=== PATIENT | female | born 1990 ===

== ENCOUNTER 2016-06-03 16:52 | Inpatient (IN) ==
[2016-06-03] MEDS ORDERED: ONDANSETRON 4 MG/2 ML VIAL IV PRN ×2 (17:33→19:43)
[2016-06-03] MEDS ORDERED: MAGNESIUM SULF DRIP 40 GM/1,000 ML ML IV ONE (17:52)
[2016-06-03] MEDS ORDERED: AMPICILLIN 2,000 MG VIAL ONE (17:57)
[2016-06-03] MEDS ORDERED: SODIUM CHLORIDE 0.9% 100 ML IV ONE (17:58)
[2016-06-03] MEDS ORDERED: LACTATED RINGERS 1,000 ML IV SCH ×2 (18:00→20:00)
[2016-06-03] MEDS ORDERED: BETAMETH SODIUM PHOS/ACETATE 30 MG/5 ML VIAL IM SCH (18:00)
[2016-06-03] MEDS ORDERED: AMPICILLIN INJ 2,000 MG in SODIUM CHLORIDE 0.9% 100 ML IV SCH (18:00)
[2016-06-03] MEDS ORDERED: MAGNESIUM SULF DRIP 40 GM/1,000 ML ML IV SCH (18:00)
[2016-06-03 18:13] LABS: Basophils % 0.2 % (0.0-0.8); Eosinophils # 0.1 10*3/uL (0.0-0.87); Eosinophils % 0.6 % (0.00-10.9); Hematocrit 32.5 VOL% (35.7-47.0); Hemoglobin 10.6 GM/DL (12.0-16.0); Immature Granulocytes % 0.5 %; Immature Granulocytes Absolute 0.05 #; Lymphocytes # 1.7 10*3/uL (1.4-4.0); Lymphocytes % 16.2 % (21.3-54.2); Mean Corpuscular HGB Conc 32.6 GM/DL (32-36); Mean Corpuscular Hemoglobin 30 PG (27-34); Mean Corpuscular Volume 90.8 FL (87-102); Mean Platelet Volume 10.7 FL (9.6-12.0); Monocytes # 0.6 10*3/uL (0.11-0.8); Monocytes % 6.3 % (1.7-12.7); Neutrophils # 7.8 10*3/uL (1.4-7.4); Neutrophils % 76.2 % (38.7-73.9); Platelet Count 201 T/CUMM (130-400); Red Blood Count 3.58 MC/CUMM (3.8-5.5); Red Cell Distribution Width 13.3 % (9.3-17.3); White Blood Count 10.2 T/CUMM (4-12)
--- NOTE | 2016-06-03 18:26 | Ultrasound Report ---
Exam: US OB limited Date: 06/03/2016 5:34 PM Comparison: 02/17/2010 Indication: Possible premature rupture of membranes, position, LENNY Technique:[Limited transabdominal scans were obtained. Color flow scans obtained. Ultrasound images were captured and stored.] Findings: There is a single intrauterine fetus in the transverse lie presentation with the feet in the cervical location. No measurable cervix identified. Anterior placenta is not low lying in position. Maternal ovaries are not identified. No detailed survey scans were obtained. Measurements obtained are as follows: BPD 32 weeks 3 days HC 33 weeks 1 day AC 31 weeks 2 days FL 30 weeks 1 day EFW 3 lbs. 12 oz. +/- 9 ounces GP 97% LENNY 87.3 mm Impression: Single intrauterine fetus in the transverse lie presentation at 31 weeks 4 days +/- 2 weeks 1 day with EDC 08/01/2016. LENNY 87.3 mm. No measurable cervix with feet projecting in the cervical location. Follow-up scans may be helpful for further evaluation as discussed the patient's nurse, at 6:20 PM on 06/03/2016. PROCEDURE INTERPRETED AT [facility] DEPARTMENT OF RADIOLOGY Final Report Signed by: Dr. Joana Tim
[2016-06-03 18:35] LABS: Albumin 2.5 G/DL (3.4-5.0); Bilirubin,Total 0.4 MG/DL (0.2-1.0); Calcium 8.2 MG/DL (8.5-10.1); Osmolality,Calculated 274.5 MOS/KG (273-304); Total Protein 6.3 G/DL (6.4-8.3)
[2016-06-03] MEDS ORDERED: CITRIC ACID/SODIUM CITRATE 30 ML UDCUP PO ONE (18:39)
[2016-06-03] MEDS ORDERED: FAMOTIDINE 20 MG/2 ML VIAL IV ONE (18:39)
[2016-06-03] MEDS ORDERED: ceFAZolin 2,000 MG in PREMIX 1 EACH IV ONE (18:41)
[2016-06-03] MEDS ORDERED: OXYTOCIN/LR 20 UNIT/1,000 ML BAG IV ONE ×4 (18:44→22:35)
[2016-06-03 18:50] LABS: Apearance,Urine CLEAR (Clear); Bilirubin,Urine Negative (Negative); Blood, Urine Negative (Negative); Glucose,Urine (UA) Negative (Negative); Ketones,Urine Negative (Negative); Mucus,Urine Occasional /LPF (Occasional); Nitrite,Urine Negative (Negative); Protein,Urine Negative; RBC,Urine <1 /HPF (0-4); Squamous Epithelial Cell,Urine Occasional /HPF (0-10); Urine Color Yellow (Yellow); Urine Specific Gravity 1.024 (1.001-1.035); Urine Urobilinogen < 2.0 EU/DL (0.2-1.0); WBC,Urine <1 /HPF (0-6)
[2016-06-03] MEDS ORDERED: ONDANSETRON 4 MG/2 ML VIAL ONE (19:31)
[2016-06-03] MEDS ORDERED: TISSUE ADHESIVE 1 EACH APPLICATOR TOP ONE (19:34)
--- NOTE | 2016-06-03 19:35 | OB/GYN History & Physical ---
History of Present Illness History of present illness: Ms. Oconnell is a 25 year old female Pt. 25y/o @ 27+5 wks DAVID 08/28 presents with rupture of membranes since 1pm today. Pt. denies any vaginal bleeding, decreased movement or contractions. Pt. care with Dr. Smith in which I have no access to review. Per pt care uncomplicated. Home Medications Medication Instructions Recorded Confirmed Type No Known Home Medications [No 06/03/16 06/03/16 History Known Home Medications] Allergies Allergy/AdvReac Type Severity Reaction Status Date / Time No Known Allergies Allergy Unverified 08/16/14 20:27 12 point system: reviewed and no additional remarkable complaints except as stated Medical,Surgical,& Family Hx - Medical History Neurology: No history of: Seizures Reproductive: No history of: Ectopic , Complication - Surgical History Reproductive Surgeries: Patient denies;: Section - Social History Smoking Status: Never smoker Frequency of Alcohol Use: None 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 - 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 General appearance: no acute distress - Antepartum / Post Antepartum Exam Cervix -Dilatation: 4 Effacement: 80 Station: -3 Heart Rate: reactive, with moderate variability Reedley: + contractions - Respiratory Respiratory exam: Present: clear to auscultation bilaterally - Cardiovascular Cardiovascular exam: Present: regular rate and rhythm - GI/Abdominal GI/Abdominal exam: Present: normal bowel sounds - Extremities Exam Extremities exam: Present: normal inspection - Neurological Exam Neurological exam: Present: alert, oriented X3 - Psychiatric Psychiatric exam: Present: normal affect, normal mood - Skin Skin exam: Present: normal color Assessment and Plan (1) premature rupture of membranes (PPROM) with onset of labor after 24 hours of rupture in first trimester, antepartum Status: Acute Assessment and plan: 1. admit to labor and delivery 2. ampicillen 2gm ivpg q6hr and erythromycin 250mg q 6hr 3. magnesium for neuroprotection 4. betamethasone for lung maturity 5. ultrasound for presentation and growth Addendum: Ultrasound revealed a footling breech presentation, pt grossly ruptured and 4cm/80/-3 and palpable foot on exam. STAT primary delivery. Pt. explained my findings and recommendation for delivery by ceserean. Risk/benefits/alternatives discussed including risk of bleeding, infection, bowel or bladder injury, hysterectomy, etc. Pt. expressed her understanding. all questions answered. consent signed and witnessed. Pt. seen by NICU team. Current Visit: Yes Results - Labs CBC & BMP: 06/03/16 18:05 06/03/16 18:05 Quality Measures - VTE Contraindication to Pharmacological VTE Prophylaxis: High Risk of Bleeding
--- NOTE | 2016-06-03 19:42 | Operative Note ---
Date of procedure: 06/03/16 Pre-op diagnosis: 25y/o @ 27+5wks with PPROM in labor, breech presenting fetus Post-op diagnosis: same Procedure: classical uterine incision 1/8 weight [id number] time 2017 male footling breech FINDINGS: A living male , breech presentation, weight 2lbs 15oz, scores 1 and 8. DESCRIPTION OF PROCEDURE: The patient was brought to the operating room after her spinal preparation, and Wilkinson had been performed. The abdomen was prepped and draped in the normal sterile fashion and tested for analgesia. When found to be adequate, a low-abdominal Pfannenstiel incision was made with the first knife and carried down to the fascia with the bovie. The fascia was incised in the midline and extended laterally with curved Connors scissors. Tawanda clamps were placed on the fascial edge, anteriorly. The rectus muscles were by sharp dissection. The rectus muscles were divided in the midline by sharp dissection. The parietoperitoneum was grasped with hemostats and carefully entered into bluntly. The bladder blade was inserted. Scapel was used to make a classical incision on the uterus carefully and extended with bandage scissors. A living male was delivered atraumatically from the breech presentation. The baby was suctioned and cried immediately, and was handed to the pediatric team in attendance. The placenta was delivered with gentle uterine massage. The uterus was explored with a wet lap sponge and found to be clear of membranes. The angles of the incision were sutured 0 vicryl in a locked running fashion x 3 layers, using 2.0 chromic on the last serosal layer. Hemostasis was carefully checked and found to be satisfactory. The fallopian tubes and ovaries were inspected and found to be normal bilaterally. Interceed was then placed over the uterine incision. The peritoneum was approximated using 2. 0 chromic in a running fashion. The muscle was reapproximated using 2.0 chromic in an interrupted fashion. The fascia was closed with 0-Vicryl in a running fashion. The subcutaneous tissue was approximated with interrupted 2-0 plain catgut. The skin was closed in a subcuticular fashion with 4.0 monocryl. The patient was transferred to the recovery room in good condition. Anesthesia: spinal Surgeon / Physician: Dina Byrd-Jose Roberto Specimens: other (placenta, cord, membranes) Condition: stable Disposition: floor Results - Labs CBC & BMP: 06/04/16 02:57 06/03/16 18:05 Discharge Plan - Discharge Data Disposition: Disch To Home/Self Care - Discharge Medications New HYDROcodone/ACETAMIN 5-325 [[place] 5-325] 2 tablet PO Q6H PRN #40 tablet PRN Reason: Pain Severe (8-10) - Follow Up or Referral Follow Up: Bette Fernández MD [Physician] - 06/13/16 2:30 pm - Forms/Instructions Instructions: Section (DC), Perineal Care (DC), Bleeding (DC)
[2016-06-03] MEDS ORDERED: RHO(D) IMMUNE GLOBULIN 300 MCG SYRINGE IM ONE (19:43)
[2016-06-03] MEDS ORDERED: ACETAMINOPHEN 325 MG TABLET PO PRN (19:43)
[2016-06-03 20:53] LABS: Cord Arterial Blood HCO3 26.5 MMOL/L
[2016-06-03 20:57] LABS: Cord Venous Blood HCO3 23.9 MMOL/L; Cord Venous Blood PCO2 45.3 MMHG; Cord Venous Blood PO2 37.2 MMHG
--- NOTE | 2016-06-03 21:20 | Anesthesia ---
Anesthesia Post OP - Post Ansesthetic Evaluation Patient seen in post op: Yes Resp: within normal limits CV: within normal limits Mental: within normal limits Temp: within normal limits Ortb-[id number]-Nuhxldnaa: within normal limits Nausea and Vomiting: within normal limits Pain: within normal limits
[2016-06-03] MEDS ORDERED: fentaNYL 100 MCG/2 ML VIAL ONE (21:21)
[2016-06-03] MEDS ORDERED: MORPHINE 10 MG/10 ML VIAL ONE (21:22)
[2016-06-03] MEDS ORDERED: MIDAZOLAM 2 MG/2 ML VIAL ONE (21:22)
[2016-06-03] MEDS ORDERED: PROMETHAZINE 25 MG/1 ML VIAL IM ONE (22:16)
[2016-06-03] MEDS ORDERED: PROMETHAZINE 25 MG/1 ML VIAL ONE (22:18)
[2016-06-04] MEDS: ERYTHROMYCIN INJ 500 MG in SODIUM CHLORIDE 0.9% 100 ML IV SCH ×3 (02:00→08:00)
[2016-06-04 03:10] LABS: Basophils % 0.2 % (0.0-0.8); Eosinophils % 0.1 % (0.00-10.9); Hematocrit 29.5 VOL% (35.7-47.0); Immature Granulocytes % 0.3 %; Immature Granulocytes Absolute 0.03 #; Lymphocytes # 1.3 10*3/uL (1.4-4.0); Lymphocytes % 11.5 % (21.3-54.2); Mean Corpuscular HGB Conc 33.9 GM/DL (32-36); Mean Corpuscular Hemoglobin 30 PG (27-34); Mean Corpuscular Volume 88.9 FL (87-102); Mean Platelet Volume 10.4 FL (9.6-12.0); Monocytes # 0.6 10*3/uL (0.11-0.8); Monocytes % 5.2 % (1.7-12.7); Neutrophils # 9.1 10*3/uL (1.4-7.4); Neutrophils % 82.7 % (38.7-73.9); Platelet Count 201 T/CUMM (130-400); Red Blood Count 3.32 MC/CUMM (3.8-5.5); Red Cell Distribution Width 13.2 % (9.3-17.3)
[2016-06-04] MEDS: DOCUSATE SODIUM 100 MG CAPSULE PO SCH ×2 (08:23→20:00)
[2016-06-04] MEDS: MULTIVITAMIN (PRENATAL) TABLET PO SCH (08:24)
[2016-06-04] MEDS: SIMETHICONE CHEW 80 MG TABLET PO PRN (08:24)
[2016-06-04] MEDS: MAGNESIUM HYDROXIDE SUSP 30 ML UDCUP PO PRN (08:24)
[2016-06-04] MEDS: IBUPROFEN 800 MG TABLET PO PRN (11:20)
--- NOTE | 2016-06-04 12:32 | OB/GYN Progress Note ---
Assessment and Plan (1) premature rupture of membranes (PPROM) with onset of labor after 24 hours of rupture in first trimester, antepartum Status: Acute Assessment and plan: 1. admit to labor and delivery 2. ampicillen 2gm ivpg q6hr and erythromycin 250mg q 6hr 3. magnesium for neuroprotection 4. betamethasone for lung maturity 5. ultrasound for presentation and growth Addendum: Ultrasound revealed a footling breech presentation, pt grossly ruptured and 4cm/80/-3 and palpable foot on exam. STAT primary delivery. Pt. explained my findings and recommendation for delivery by ceserean. Risk/benefits/alternatives discussed including risk of bleeding, infection, bowel or bladder injury, hysterectomy, etc. Pt. expressed her understanding. all questions answered. consent signed and witnessed. Pt. seen by NICU team. Current Visit: Yes (2) Status post delivery Status: Acute Assessment and plan: 1. ambulate 2. pain management 3. advance diet as tolerated 4. 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 seen by bedside, denies any chest pain or shortness of breath. no fever or chills. Exam PULLING UNIT FLOORHAND - 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 Vitals: Vital Signs Temp Pulse Pulse Resp BP Pulse Ox Pulse Ox 06/04/16 11:52 18 06/04/16 11:50 97.2 F L 86 18 132/67 97 06/04/16 10:00 18 06/04/16 08:17 18 06/04/16 08:00 18 06/04/16 03:30 97.1 F L 85 18 106/59 95 06/04/16 02:30 77 18 108/66 95 06/04/16 01:30 73 18 109/70 99 06/04/16 01:00 75 18 122/72 99 06/04/16 00:30 98.2 F 69 18 124/66 98 06/04/16 00:28 123/57 06/03/16 23:28 77 20 119/62 06/03/16 22:28 98.2 F 75 20 143/76 96 06/03/16 21:28 97.6 F 78 20 141/63 General appearance: no acute distress - Respiratory Respiratory exam: Present: clear to auscultation bilaterally - Cardiovascular Cardiovascular exam: Present: regular rate and rhythm - GI/Abdominal GI/Abdominal exam: Present: normal bowel sounds - Extremities Exam Extremities exam: Present: normal inspection Results - Labs CBC & BMP: 06/04/16 02:57 06/03/16 18:05
[2016-06-04] MEDS: METOCLOPRAMIDE 10 MG/2 ML VIAL IV SCH ×2 (12:47→20:00)
[2016-06-05] MEDS: IBUPROFEN 800 MG TABLET PO PRN (01:36)
[2016-06-05] MEDS: METOCLOPRAMIDE 10 MG/2 ML VIAL IV SCH (04:45)
--- NOTE | 2016-06-05 05:53 | OB/GYN Progress Note ---
Assessment and Plan (1) premature rupture of membranes (PPROM) with onset of labor after 24 hours of rupture in first trimester, antepartum Status: Acute Current Visit: Yes (2) Status post delivery Status: Acute Assessment and plan: Routine postoperative and care. Advance diet. Patient to ambulate. 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 Interval history: no complaint Exam TRIM DIE MAKER - 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 Vitals: Vital Signs Temp Pulse Resp BP Pulse Ox 06/05/16 04:00 96.3 F L 87 18 126/73 95 06/05/16 02:00 18 06/05/16 00:00 99.5 F 115 H 18 110/55 95 06/04/16 20:00 98.2 F 105 H 18 141/82 95 06/04/16 17:39 18 06/04/16 16:00 97.4 F L 88 18 120/60 96 06/04/16 14:00 18 06/04/16 11:52 18 06/04/16 11:50 97.2 F L 86 18 132/67 97 06/04/16 10:00 18 06/04/16 08:17 18 06/04/16 08:00 18 - Gyencological / Post Surgical Post Surgical Exam Extremities TRIM DIE MAKER: Present: normal Abdomen obstetrics progress note: Present: normal appearance, soft Incision OB: Present: normal, dry, intact - Head Head exam: Present: normocephalic - Respiratory Respiratory exam: Present: clear to auscultation bilaterally - Cardiovascular Cardiovascular exam: Present: regular rate and rhythm - GI/Abdominal GI/Abdominal exam: Present: normal bowel sounds, soft - Extremities Exam Extremities exam: Present: normal inspection - Back Exam Back exam: Present: normal inspection - Neurological Exam Neurological exam: Present: alert, oriented X3 - Psychiatric Psychiatric exam: Present: normal affect, normal mood Results - Labs CBC & BMP: 06/04/16 02:57 06/03/16 18:05
[2016-06-05] MEDS: MULTIVITAMIN (PRENATAL) TABLET PO SCH (11:00)
[2016-06-05] MEDS: DOCUSATE SODIUM 100 MG CAPSULE PO SCH ×2 (11:00→22:00)
[2016-06-05] MEDS: SIMETHICONE CHEW 80 MG TABLET PO PRN (14:43)
[2016-06-05] MEDS: METOCLOPRAMIDE 10 MG TABLET PO SCH (16:32)
[2016-06-05] MEDS: MAGNESIUM HYDROXIDE SUSP 30 ML UDCUP PO PRN (16:32)
[2016-06-06] MEDS: METOCLOPRAMIDE 10 MG TABLET PO SCH ×2 (00:10→08:15)
[2016-06-06 07:28] VITALS: BP 133/72
[2016-06-06] MEDS: MAGNESIUM HYDROXIDE SUSP 30 ML UDCUP PO PRN (08:15)
[2016-06-06] MEDS: MULTIVITAMIN (PRENATAL) TABLET PO SCH (08:15)
[2016-06-06] MEDS: DOCUSATE SODIUM 100 MG CAPSULE PO SCH (08:15)
[2016-06-06] MEDS: SIMETHICONE CHEW 80 MG TABLET PO PRN (08:16)
--- NOTE | 2016-06-06 08:40 | Discharge Summary ---
Hospital Course - Hospital Course Hospital Course: There is a 25-year-old multiparous female at 27 weeks gestation who presented with premature rupture membranes in the augusta breech position with cervical dilation of 4 cm. She separately underwent a classical section. Hospital course unremarkable postoperative day #3 she was ready for discharge Diagnosis - Discharge Diagnosis (1) premature rupture of membranes (PPROM) with onset of labor after 24 hours of rupture in first trimester, antepartum Status: Acute (2) Status post delivery Status: Acute Specialty Discharge - Follow Up or Referrals Discharge Plan - Discharge Data Disposition: Disch To Home/Self Care Condition at Discharge: Stable Discharge Diet: advance to your usual diet Activity: resume usual activities as tolerated (Pelvic rest), no lifting Hygiene: may shower Weight Bearing at Discharge: weight bear as tolerated Driving: not until seen by doctor Contact your physician if you experience:: fever over 101, Difficulty voiding, Redness or swelling, Nausea/Vomiting, Shortness of breath, Bleeding, pain uncontrolled by pain medications - Discharge Medications New HYDROcodone/ACETAMIN 5-325 [[place] 5-325] 2 tablet PO Q6H PRN #40 tablet PRN Reason: Pain Severe (8-10) - Follow Up or Referral Follow Up: Bette Fernández MD [Physician] - 1 Week - Forms/Instructions Instructions: Section (DC), Perineal Care (DC), Bleeding (DC) Exam - 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 Vitals: Period Temp Pulse Resp BP Sys/Jean-Baptiste Pulse Ox Last 24 Hr 97.6 F-98.4 F 88-105 18-20 100-145/60-79 96-98 General appearance: no acute distress - Head Head exam: Present: normocephalic - Neck Neck exam: Present: normal inspection - Respiratory Respiratory exam: Present: clear to auscultation bilaterally - Cardiovascular Cardiovascular exam: Present: regular rate and rhythm - GI/Abdominal GI/Abdominal exam: Present: normal bowel sounds, soft, other (Incision clean dry and intact. Uterus firm and well contracted) - Extremities Exam Extremities exam: Present: normal inspection - Back Exam Back exam: Present: normal inspection - Neurological Exam Neurological exam: Present: alert, oriented X3 - Psychiatric Psychiatric exam: Present: normal affect, normal mood - Skin Skin exam: Present: normal color, warm DS: Provider Date of admission: 06/03/16 18:41 Primary care physician: Panchito Xie MD Attending physician on admission: Dina Mckeon, Consults: 06/03/16 17:33 Consult to Anesthesiology [CONS] Routine Consulting Provider: Reason for Anesthesiology: Epidural Consult Comment: Epidural for pain managment 06/03/16 18:41 Consult to Anesthesiology [CONS] Routine Consulting Provider: Reason for Anesthesiology: Pre-op Clearance 06/03/16 19:43 Consult to Section Gang Worker [CONS] Routine Consult Section Gang Worker: Breast Feeding Discharging clinician: Bette Fernández MD
[2016-06-06] MEDS ORDERED: MEASLES/MUMPS/RUBELLA VACCINE 0.5 ML VIAL SUBCUT ONE (09:34)
[2016-06-06] MEDS ORDERED: DIPH/TET/ACEL PERT BOOSTER VACCINE 0.5 ML VIAL IM ONE (09:54)
--- NOTE | 2016-06-06 10:49 | Pathology Report from [facility] ---
ACCESSION # : [id number] PATIENT NAME : Dina Oconnell ORDERING DR : Dina Mckeon MD CLINICAL HX: IUP 27 weeks footing breech PROM POST-OP DX: Same SPECIMEN INFO: Placenta GROSS DESCRIPTION: The specimen is received fresh labeled with the patient's name Dina Oconnell is a 342 gram placenta which measures 19.5 x 12.0 x 2.5 cm. The membranes are jonas and somewhat translucent. The umbilical cord measures 13.5 cm, contains three vessels and is centrally inserted. The surface is blue hernández and intact. The maternal surface displays markedly disrupted cotyledons with no abnormalities noted upon sectioning. Sections submitted A- membranes and cord, B- and maternal surfaces. DIAGNOSIS FOR DINA OCONNELL: PLACENTA, MEMBRANES, UMBILICAL CORD: Focal placental infarction, mild intervillous blood. Tri-vessel umbilical cord. Acute chorioamnionitis. SERVICE DATE: 06/05/2016 REPORT DATE: 06/06/2016 PATHOLOGIST: Debra Ji
== END 2016-06-06 12:35 | disposition home or self-care (01) | DRG 766 ==
LOC: N.LDOUT 16:52 → N.LD 16:54 → N.OB 06-04 00:30
PROVIDERS: ADMIT Obstetrics & Gynecology; ATTEND Obstetrics & Gynecology
PROC: LDCSECT (ICD-10-PCS; 2016-06-03 19:30)